=== PATIENT | female | born 1955 | race African-American/Black ===

== ENCOUNTER → 2016-05-26 | Outpatient (CLI) | payer OTHER ==
[2016-05-26 10:24] LABS: ABSOLUTE BASOPHILS # (AUTO) 0.1 10^3/uL (0.0-0.2); ABSOLUTE EOSINOPHILS # (AUTO) 0.1 10^3/uL (0.0-0.6); ABSOLUTE LYMPHOCYTES (AUTO) 1.8 10^3/uL (0.5-4.7); ABSOLUTE MONOCYTES (AUTO) 0.3 10^3/uL (0.1-1.4); ABSOLUTE NEUT (AUTO) 1.5 10^3/uL (1.7-8.2); BASOPHILS % (AUTO) 1.4 % (0-2); EOSINOPHILS % (AUTO) 3.8 % (0-6); HEMATOCRIT 32.1 % (36.0-47.0); HEMOGLOBIN 10.9 g/dL (12.0-15.5); HGB HCT DIFFERENCE 0.6; LYMPHOCYTES % (AUTO) 47.6 % (13-45); MEAN CORPUSCULAR HEMOGLOBIN 29.7 pg (27.0-33.4); MEAN CORPUSCULAR VOLUME 87 fl (80-97); MONOCYTES % (AUTO) 7.7 % (3-13); RED BLOOD COUNT 3.68 10^6/uL (3.72-5.28); RED CELL DISTRIBUTION WIDTH 12.8 % (11.5-14.0); SEGMENTED NEUTROPHILS % (AUTO) 39.5 % (42-78); WHITE BLOOD COUNT 3.7 10^3/uL (4.0-10.5)
[2016-05-26 10:57] LABS: ALANINE AMINOTRANSFERASE 28 U/L (9-52); ALBUMIN 4.1 g/dL (3.5-5.0); ALKALINE PHOSPHATASE 93 U/L (38-126); ANION GAP 11 (5-19); ASPARTATE AMINO TRANSFERASE 24 U/L (14-36); BILIRUBIN,DIRECT 0.1 mg/dL (0.0-0.4); BILIRUBIN,TOTAL 0.6 mg/dL (0.2-1.3); BLOOD UREA NITROGEN 9 mg/dL (7-20); CALCIUM 7.6 mg/dL (8.4-10.2); CARBON DIOXIDE 28 mmol/L (22-30); CHLORIDE 105 mmol/L (98-107); CHOLESTEROL 200.46 mg/dL (0-200); CREATININE RESULT 0.74 mg/dL (0.52-1.25); Direct HDL 50 mg/dL (>40); GLUCOSE 93 mg/dL (75-110); POTASSIUM 3.9 mmol/L (3.6-5.0); TOTAL PROTEIN 6.6 g/dL (6.3-8.2); TRIGLYCERIDES 91 mg/dL (<150)
[2016-05-26 11:09] LABS: DIRECT LDL 112 mg/dL (<100)
[2016-05-26 12:00] LABS: FOLATE 7.51 ng/mL (>2.76)
== END ==
LOC: LAB 09:40
PROVIDERS: ATTEND Nurse Practitioner Family
DX: D63.8 Anemia in other chronic diseases classified elsewhere (principal); E55.9 Vitamin D deficiency, unspecified; E78.2 Mixed hyperlipidemia; E89.0 Postprocedural hypothyroidism
CPT/HCPCS: 36415; 80053; 80061; 82607; 82652; 82728; 82746; 83036; 83540; 83550; 84443; 85025

== ENCOUNTER 2017-01-23 08:43 | Day surgery (SDC) | payer OTHER ==
--- NOTE | 2017-01-18 13:51 | HISTORY AND PHYSICAL E ---
History and Physical NAME: SATURDAYALLAN : 1955 AGE: 61Y ADMITTED: 01/23/2017 ROOM: HISTORY OF PRESENT ILLNESS: Patient for colon screening. SOCIAL HISTORY: , does not smoke, does not drink. PAST SURGICAL HISTORY: 1. Thyroid surgery, 2006. 2. Gastric bypass. 3. Cholecystectomy. REVIEW OF SYSTEMS: CARDIAC: Hypertension. ENDOCRINE: Thyroid surgery. GASTROINTESTINAL: Colon screening. ONCOLOGY/HEMATOLOGY: Anemia. MUSCULOSKELETAL: Arthritis, cervical spine. FAMILY HISTORY: Father had pneumonia. Mom had accident. PHYSICAL EXAMINATION: VITAL SIGNS: Blood pressure 160/80, pulse 60, respirations 18, temperature is 98. HEAD, EYES, EARS, NOSE AND THROAT: Normal. NECK: Supple. LUNGS: Clear. ABDOMEN: Soft. NEUROLOGIC EXAM: Negative. MEDICATIONS: 1. Claritin. 2. Mobic. 3. Metoprolol. 4. Thyroid. PLAN: Colon exam. Patient to undergo colonoscopy 01/23. The patient referred to us by [facility] [place]. She does have anemia, chronic disease, hyperlipidemia, B12 deficiency, anemia, allergic rhinitis, essential hypertension. Postsurgical hypothyroid. Surgery: She is menopausal. The patient did have hysterectomy, ovaries, in 1991. CONCLUSION: Colon screening. DICTATING PHYSICIAN: FRAN LAKHANI M.D. [id number] PHY#: [id number] ID: [id number] JOB#: [id number] ACCT: [id number] cc:FRAN LAKHANI M.D. >
[~2017-01-23 08:43] MED LIST: EPINEPHRINE INJ 1 MG/10 ML DISP.SYRIN ONE; FLUMAZENIL INJ 0.5 MG/5 ML VIAL ONE; GLUCAGON,HUMAN RECOMB 1 MG INJ ONE; GLYCOPYRROLATE INJ 0.4 MG/2 ML VIAL ONE; MIDAZOLAM 2 MG/2 ML INJ ONE; NALOXONE HCL INJ/PF 0.4 MG/1 ML SDV ONE; ONDANSETRON HCL INJ/PF 4 MG/2 ML SDV ONE
[2017-01-23] MEDS: FENTANYL CITRATE INJ/PF 100 MCG/2 ML AMPUL ONE ×2 (09:21→09:26)
[2017-01-23 10:37] VITALS: BP 144/77
[2017-01-23 10:57] LABS: HEMATOCRIT 32.3 % (36.0-47.0); HEMOGLOBIN 10.7 g/dL (12.0-15.5); HGB HCT DIFFERENCE -0.2; MEAN CORPUSCULAR HEMOGLOBIN 29.7 pg (27.0-33.4); MEAN CORPUSCULAR VOLUME 90 fl (80-97); RED BLOOD COUNT 3.59 10^6/uL (3.72-5.28); RED CELL DISTRIBUTION WIDTH 13.2 % (11.5-14.0)
[2017-01-23 11:05] LABS: IRON 54.6 ug/dL (37-170)
[2017-01-23 11:39] LABS: CARCINOEMBRYONIC ANTIGEN 1.2 ng/mL (<3.0)
[2017-01-23 11:43] LABS: FERRITIN 25.5 ng/mL (11.1-264.0)
[2017-01-23 11:45] LABS: WHITE BLOOD COUNT 1.8 10^3/uL (4.0-10.5)
--- NOTE | 2017-01-23 13:29 | OPERATIVE REPORT E ---
Operative Report NAME: ALLAN ERNANDEZ : 1955 AGE: 61Y DATE OF SURGERY: 01/23/2017 ROOM: PREOPERATIVE DIAGNOSIS: Colon screening. POSTOPERATIVE DIAGNOSES: 1. Sigmoid diverticulosis. 2. Diminutive sigmoid polyp 2 mm, small to biopsy. 3. Mild external hemorrhoids. PROCEDURE: Colonoscopy. SURGEON: FRAN LAKHANI M.D. TISSUE REMOVED OR ALTERED: None. ANESTHESIA: Versed 4, fentanyl 100. DESCRIPTION OF PROCEDURE: Patient was kept on clear liquid, but she ate a large amount of red Jell-O, which made the procedure difficult, but successful to the cecum. Difficult colonoscopy, adhesions from gastric bypass. Rectal exam: External hemorrhoids, mild. Rectosigmoid difficult to intubate diverticulosis. Descending colon diverticulosis. Sigmoid diminutive polyp, small to biopsy. Transverse colon normal. Ascending, cecum thoroughly visualized. Orifice of the appendix was seen. Moderate amount of Jell-O accumulated in the right colon, red Jell-O lavage. Narrow-band imaging was used. No evidence of malignancy. No significant polyps were seen. Cecum normal. Ascending colon normal. Transverse colon redundant. Sigmoid descending colon diverticulosis, diminutive polyp sigmoid, too small to biopsy, and external hemorrhoids mild. DISCHARGE PLAN: Baseline CBC. Hold aspirin, nonsteroidal. Soft, low-residue diet. Consideration followup colonoscopy 2-3 years with good sedation, most likely needs to be done in the OR with propofol. DICTATING PHYSICIAN: FRAN LAKHANI M.D. [id number] PHY#: [id number] ID: [id number] JOB#: [id number] ACCT: [id number] cc:[facility] FRAN LAKHANI M.D. >
--- NOTE | 2017-01-23 13:44 | DISCHARGE SUMMARY E ---
Discharge Summary NAME: ALLAN ERNANDEZ : 1955 AGE: 61Y ADMITTED: 01/23/2017 DISCHARGED: 01/23/2017 HISTORY: A 61-year-old female who has history of gastric bypass, underwent colon screening, no malignancy. Diminutive polyp sigmoid, small to biopsy, and sigmoid diverticulosis, mild external hemorrhoids. DISCHARGE PLAN: Baseline CBC and CEA, diminutive polyp. Vitamin B12 and serum iron. DICTATING PHYSICIAN: FRAN LAKHANI M.D. [id number] PHY#: [id number] ID: [id number] JOB#: [id number] ACCT: [id number] cc:[facility] FRAN LAKHANI M.D. >
[2017-01-24 12:20] LABS: PATH REVIEW PATHOLOGIST REVIEWED
== END 2017-01-23 10:50 | disposition home or self-care (01) ==
LOC: END 08:43
PROVIDERS: ATTEND Specialist
PROC: 0DJD8ZZ Inspection of Lower Intestinal Tract, Via Natural or Artificial Opening Endoscopic (ICD-10-PCS; principal; 2017-01-23 09:00)
DX: Z12.11 Encounter for screening for malignant neoplasm of colon (principal); D12.5 Benign neoplasm of sigmoid colon; K64.4 Residual hemorrhoidal skin tags; K57.30 Diverticulosis of large intestine without perforation or abscess without bleeding; Z98.84 Bariatric surgery status; D64.9 Anemia, unspecified; Z79.1 Long term (current) use of non-steroidal anti-inflammatories (NSAID); Z79.899 Other long term (current) drug therapy
CPT/HCPCS: 45378; 36415; 82607; 82378; 82728; 83540; 85027; J2250; J3010; J1610; J0171; J2310; J2405; J3490

== ENCOUNTER → 2017-07-17 | Outpatient (CLI) | payer OTHER ==
--- NOTE | 2017-07-17 11:51 | WOMENS IMAGING REPORT ---
EXAM DESCRIPTION: BILAT SCREENING MAMMO W/CAD COMPLETED DATE/TIME: 07/17/2017 7:27 am REASON FOR STUDY: SCREENING MAMMO Z12.31 ENCNTR SCREEN MAMMOGRAM FOR MALIGNANT NEOPLASM OF IRAM COMPARISON: 06/30/2014 and 08/13/2012. TECHNIQUE: Standard craniocaudal and mediolateral oblique views of each breast recorded using [employer] acquisition. LIMITATIONS: None. FINDINGS: No masses, calcifications or architectural distortion. No areas of suspicion. Read with the assistance of CAD. .[facility] - R2 [employer] Version 1.3 .[facility] - R2 Cenova Version 1.3 .[facility] - R2 Cenova Version 2.4 .[facility] [place] - R2 Cenova Version 2.4 .[facility] - R2 Rec[employer] Coordinator Version 9.2 IMPRESSION: NORMAL MAMMOGRAM. BIRADS 1. BREAST DENSITY: a. The breasts are almost entirely fatty. BIRAD: 1 NEGATIVE RECOMMENDATION: ROUTINE SCREENING COMMENT: The patient has been notified of the results by letter per [place] requirements. Additional no tification policies are in place for contacting patient with suspicious or incomplete findings. Quality ID #[id number]: The [employer] recommends an annual screening mammogram for women aged 40 years or over. This facility utilizes a reminder system to ensure that all patients receive reminder letters, and/or direct phone calls for appointments. This includes reminders for routine scr eening mammograms, diagnostic mammograms, or other Breast Imaging Interventions when appropriate. Th is patient will be placed in the appropriate reminder system. The [employer] (A[employer]) has developed recommendations for screening MRI of the breast s in certain patient populations, to be used in conjunction with mammography. Breast MRI surveillanc e may be appropriate for women with more than 20% lifetime risk of developing breast cancer as deter mined by genetic testing, significant family history of the disease, or history of mantle radiation f or Hodgkins Disease. ACR Practice Guidelines 2008. TECHNICAL DOCUMENTATION: FINDING NUMBER: (1) ASSESSMENT: (1) JOB ID: [id number] [employer]- All Rights Reserved Reading location - IP/workstation name: [facility]
== END ==
LOC: WI 07:08
PROVIDERS: ATTEND Physician Assistant
DX: Z12.31 Encounter for screening mammogram for malignant neoplasm of breast (principal)
CPT/HCPCS: 77067